=== PATIENT | female | born 1990 | race Caucasian/White ===

== ENCOUNTER 2017-01-13 19:00 | Emergency (ER) | payer MEDICAID, OTHER ==
[2017-01-13 19:00] VITALS: BMI 33.0
[2017-01-13 19:28] VITALS: TEMP 98.2; O2SAT 97
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
[2017-01-13 19:57] LABS: RBC URINE 2 /hpf (0-3); URINE BACTERIA RARE (<OCC); URINE BILIRUBIN NEGATIVE (NEGATIVE); URINE COLOR Yellow (YELLOW); URINE GLUCOSE (UA) NORMAL (Normal); URINE KETONE NEGATIVE (NEGATIVE); URINE PROTEIN NEGATIVE (NEGATIVE); URINE UROBILINOGEN NORMAL mg/dL (0.2-1.0); WBC URINE 2 /hpf (0-5)
[2017-01-13] MEDS ORDERED: Sodium Chloride 0.9% 1,000 ML IV ONE (19:59)
[2017-01-13 20:08] LABS: URINE BLOOD NEGATIVE (NEGATIVE); URINE LEUKOCYTE ESTERASE NEGATIVE Leu/uL (Negative)
[2017-01-13 20:16] LABS: BASO % 0.3 % (0.0-2.0); EOS # 0.1 K/uL (0.0-0.7); EOS % 0.5 % (0.0-4.0); HEMATOCRIT 31.3 % (34.0-47.0); LYMPH # 3.1 K/uL (1.0-4.3); LYMPH % 25.9 % (20.0-40.0); MEAN CELL VOLUME 83.6 fL (81.0-99.0); MEAN CORPUSCULAR HEMOGLOBIN 27.6 pg (27.0-31.0); MEAN PLATELET VOLUME 7.5 fL (7.2-11.7); MONO # 0.6 K/uL (0.0-0.8); MONO % 4.7 % (0.0-10.0); RED CELL DISTRIBUTION WIDTH 14.1 % (11.5-14.5); WHITE BLOOD COUNT 12.1 K/uL (4.8-10.8)
[2017-01-13 20:26] LABS: POTASSIUM 5.2 mmol/L (3.6-5.2)
[2017-01-13 20:28] LABS: BILIRUBIN,TOTAL 0.4 mg/dL (0.2-1.3)
[2017-01-13 20:29] LABS: ALB/GLOB RATIO 1.1 (1.0-2.1); CALCIUM 8.9 mg/dl (8.6-10.4); TOTAL PROTEIN 7.9 g/dL (6.3-8.3)
--- NOTE | 2017-01-13 21:53 | CT ---
EXAM: CT Abdomen and Pelvis Without Intravenous Contrast CLINICAL HISTORY: 26 years old, female; Pain; Abdominal pain; Flank; Left lower quadrant (llq); Additional info: Left flank pain TECHNIQUE: Axial computed tomography images of the abdomen and pelvis without intravenous contrast. This CT exam was performed using one or more of the following dose reduction techniques: automated exposure control, adjustment of the mA and/or kV according to patient size, and/or use of iterative reconstruction technique. Coronal and sagittal reformatted images were created and reviewed. EXAM DATE/TIME: Exam ordered 01/13/2017 8:59 PM COMPARISON: US - ABDOMEN COMPLETE 10/10/2015 1:25:17 PM FINDINGS: Lower thorax: No acute findings. ABDOMEN: Liver: Unremarkable. Gallbladder and bile ducts: Surgical clips are noted in the gallbladder fossa. The gallbladder is absent. No ductal dilation. Pancreas: Unremarkable. No ductal dilation. Spleen: Unremarkable. No splenomegaly. Adrenals: Unremarkable. No mass. Kidneys and ureters: The [place] kidneys are atrophic. A nonobstructing calcification measuring 4 mm is noted in the midportion of the right kidney. A 3 mm nonobstructing calcification is noted the midportion of the left kidney. There is a transplanted kidney seen in the right lower quadrant. There is no hydronephrosis noted. Stomach and bowel: Unremarkable. No obstruction. No mucosal thickening. Appendix: No findings to suggest acute appendicitis. PELVIS: Bladder: Unremarkable. No stones. Reproductive: There is a complex cystic mass noted in the left adnexa measuring 6.6 x 6.7 cm. x 6.9 cm. ABDOMEN and PELVIS: Intraperitoneal space: A small amount of free fluid is seen in the posterior cul-de-sac. No free air. Bones/joints: An area of sclerosis is noted in the superior pubic ramus on the left. No acute fracture. No dislocation. Soft tissues: Unremarkable. Vasculature: Unremarkable. No abdominal aortic aneurysm. Lymph nodes: Unremarkable. No enlarged lymph nodes. IMPRESSION: 1. 6.9 cm complex mass noted in the left adnexa. This can be within the range of normal for menstruating female. The ovaries are better delineated with ultrasound 2. Atrophic [place] kidneys with nonobstructing renal calculi bilaterally 3. Small sclerotic lesions noted within the left superior pubic ramus. This could represent a bone island. Clinical correlation suggested.
[2017-01-13 23:11] VITALS: BP 134/87; PULSE 84; RESP 16
== END 2017-01-13 23:14 | disposition home or self-care (01) ==
LOC: C.ER 19:00
DX: R10.9 Unspecified abdominal pain (principal)
CPT/HCPCS: 74176; 80053; 81001; 83690; 84703; 85025; 85610; 85730; 87040; 96360; 99284; J7040

== ENCOUNTER 2017-02-02 13:11 | Emergency (ER) | payer OTHER, MEDICAID ==
[2017-02-02 13:19] VITALS: BMI 31.7
[2017-02-02 14:39] LABS: HCG,QUALITATIVE URINE NEGATIVE (NEGATIVE)
[2017-02-02 14:48] LABS: SQUAMOUS EPITHIAL 2 /hpf (0-5); URINE BILIRUBIN NEGATIVE (NEGATIVE); URINE BLOOD NEGATIVE (NEGATIVE); URINE CLARITY Clear (Clear); URINE COLOR Yellow (YELLOW); URINE GLUCOSE (UA) NORMAL (Normal); URINE LEUKOCYTE ESTERASE NEG Leu/uL (Negative); URINE NITRATE NEGATIVE (NEGATIVE); URINE PROTEIN 1+ mg/dL (NEGATIVE); URINE UROBILINOGEN NORMAL mg/dL (0.2-1.0)
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
[2017-02-02 15:16] LABS: BASO % 0.3 % (0.0-2.0); EOS % 0.3 % (0.0-4.0); HEMOGLOBIN 9.8 g/dL (11.0-16.0); LYMPH # 1.9 K/uL (1.0-4.3); LYMPH % 14.5 % (20.0-40.0); MEAN CELL VOLUME 83.3 fL (81.0-99.0); MEAN CORPUSCULAR HGB CONC 32.4 g/dL (33.0-37.0); MEAN PLATELET VOLUME 7.6 fL (7.2-11.7); MONO # 0.3 K/uL (0.0-0.8); MONO % 2.6 % (0.0-10.0); NEUT # 10.6 K/uL (1.8-7.0); NEUT % 82.3 % (50.0-75.0); RBC 3.62 Mil/uL (3.80-5.20); RED CELL DISTRIBUTION WIDTH 14.1 % (11.5-14.5); WHITE BLOOD COUNT 12.9 K/uL (4.8-10.8)
[2017-02-02] MEDS ORDERED: Oxycodone/Acetaminophen 5/325 mg Tab PO STA (15:18)
[2017-02-02] MEDS ORDERED: Oxycodone/Acetaminophen 5/325 mg Tab ONE (15:20)
[2017-02-02 15:23] LABS: ALBUMIN 4.1 g/dL (3.5-5.0)
[2017-02-02 15:26] LABS: ALB/GLOB RATIO 1.1 (1.0-2.1); CALCIUM 9.2 mg/dl (8.6-10.4)
[2017-02-02 15:32] VITALS: RESP 18
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
[2017-02-02 18:15] VITALS: BP 116/77; PULSE 72; TEMP 97.5
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
[2017-02-02 18:39] VITALS: O2SAT 98
== END 2017-02-02 18:57 | disposition home or self-care (01) ==
LOC: C.ER 13:11
DX: S16.1XXA Strain of muscle, fascia and tendon at neck level, initial encounter (principal); S40.011A Contusion of right shoulder, initial encounter; S20.02XA Contusion of left breast, initial encounter; V89.2XXA Person injured in unspecified motor-vehicle accident, traffic, initial encounter

== ENCOUNTER 2017-06-19 14:03 | Emergency (ER) | payer MEDICAID, OTHER ==
[2017-06-19 14:11] VITALS: BMI 31.1
[2017-06-19] MEDS ORDERED: Sodium Chloride 0.9% 1,000 ML IV ONE (15:45)
[2017-06-19 15:56] LABS: RBC URINE 41 /hpf (0-3); URINE BACTERIA RARE (<OCC); URINE BILIRUBIN NEGATIVE (NEGATIVE); URINE BLOOD 3+ (NEGATIVE); URINE COLOR Yellow (YELLOW); URINE GLUCOSE (UA) NORMAL (Normal); URINE KETONE NEGATIVE (NEGATIVE); URINE LEUKOCYTE ESTERASE 1+ Leu/uL (Negative); URINE PROTEIN 1+ mg/dL (NEGATIVE); URINE UROBILINOGEN NORMAL mg/dL (0.2-1.0); WBC URINE 71 /hpf (0-5)
[2017-06-19 16:11] LABS: BASO # 0.1 K/uL (0.0-0.2); BASO % 0.5 % (0.0-2.0); EOS # 0.2 K/uL (0.0-0.7); EOS % 1.7 % (0.0-4.0); HEMATOCRIT 32.2 % (34.0-47.0); LYMPH # 4.6 K/uL (1.0-4.3); LYMPH % 37.2 % (20.0-40.0); MEAN CELL VOLUME 83.1 fL (81.0-99.0); MEAN CORPUSCULAR HEMOGLOBIN 26.9 pg (27.0-31.0); MEAN CORPUSCULAR HGB CONC 32.4 g/dL (33.0-37.0); MEAN PLATELET VOLUME 7.5 fL (7.2-11.7); MONO # 0.6 K/uL (0.0-0.8); MONO % 4.9 % (0.0-10.0); RED CELL DISTRIBUTION WIDTH 14.3 % (11.5-14.5); WHITE BLOOD COUNT 12.3 K/uL (4.8-10.8)
[2017-06-19] MEDS ORDERED: Sodium Chloride 0.9% 1,000 ML ONE (16:17)
[2017-06-19 16:25] LABS: ALB/GLOB RATIO 1.1 (1.0-2.1); ALCOHOL SERUM < 10 mg/dl (0-10); ALKALINE PHOSPHATASE 112 U/L (38-126); ALT/SGPT 28 U/L (9-52); AST/SGOT 15 U/L (14-36); BILIRUBIN,TOTAL 0.6 mg/dL (0.2-1.3); BLOOD UREA NITROGEN 33 mg/dL (7-17); CALCIUM 8.5 mg/dl (8.6-10.4); CARBON DIOXIDE 19 mmol/L (22-30); CHLORIDE 106 mmol/L (98-107); GFR AFRICAN-AMERICAN 36; GLUCOSE,RANDOM 99 mg/dL (65-105); POTASSIUM 4.6 mmol/L (3.6-5.2); SODIUM 137 mmol/L (132-148); TOTAL PROTEIN 8.1 g/dL (6.3-8.3)
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
[2017-06-19 16:50] VITALS: BP 143/87; PULSE 81; RESP 16; TEMP 98
[2017-06-19 17:11] VITALS: O2SAT 99
== END 2017-06-19 17:03 | disposition home or self-care (01) ==
LOC: C.ER 14:03
DX: N39.0 Urinary tract infection, site not specified (principal); R10.814 Left lower quadrant abdominal tenderness
CPT/HCPCS: 80053; 80320; 80324; 80345; 80346; 80349; 80353; 80358; 80361; 81001; 83690; 83992; 84703; 85025; 96361; 96374; 99284; J1885; J7040

== ENCOUNTER 2017-11-10 18:30 | Emergency (ER) | payer MEDICAID ==
[2017-11-10 18:30] VITALS: BMI 31.1
[2017-11-10 18:40] VITALS: RESP 18
--- NOTE | 2017-11-10 20:07 | C.PDOC ---
History Of Present Illness 27 year old female presents to the ED c/o evaluation of diffuse itchy rash that gradually developed yesterday after she took cough medicine for the first time yesterday. Patient reports that after taking the medication she noticed the rash to her bilateral upper extremities. Otherwise, Patient denies fever, chills , headache, dizziness, drooling, throat swelling or tightness, CP, SOB, wheezing , nausea, vomit, denies any other active complaints. Ambulate to Ed for evaluation, not in any apparent distress. Time Seen by Provider: 11/10/17 19:14 Chief Complaint (Nursing): Allergic Reaction History Per: Patient History/Exam Limitations: no limitations Onset/Duration Of Symptoms: Days Current Symptoms Are (Timing): Still Present Possible Cause: Medication Associated Symptoms: Skin Rash. denies: Swelling, Dizziness Severity: None Recent travel outside of the [place]: No Additional History Per: Patient Past Medical History Reviewed: Historical Data, Nursing Documentation, Vital Signs Vital Signs: Last Vital Signs Temp 98.5 F 11/10/17 21:12 Pulse 96 H 11/10/17 21:12 Resp 18 11/10/17 21:12 BP 122/87 11/10/17 21:12 Pulse Ox 99 11/10/17 21:12 - Medical History PMH: Anxiety, Bipolar Disorder, Depression, HTN, End Stage Renal Disease, Chronic Kidney Disease (SEE COMMENT), Seizures Denies: HIV, Sexually Transmitted Disease Surgical History: Cholecystectomy - [facility] Procedures INCIS W REM OF FORIEGN BODY OR DEV FROM SKIN & SUBCUT TISSUE (08/18/14) LAPAROSCOP LYSIS-ADHES OVA,FALLOP TUBE (05/19/14) LOCAL DESTR OVA LES NEC (05/19/14) OTHER SKIN & SUBQ I D (04/17/14) Family History: States: Unknown Family Hx - Social History Hx Tobacco Use: No Hx Alcohol Use: No Hx Substance Use: No - Immunization History Hx Tetanus Toxoid Vaccination: Yes Hx Influenza Vaccination: No Hx Pneumococcal Vaccination: No Review Of Systems Constitutional: Negative for: Fever, Chills ENT: Negative for: Mouth Swelling, Throat Swelling Cardiovascular: Negative for: Chest Pain Respiratory: Negative for: Cough, Shortness of Breath Gastrointestinal: Negative for: Nausea, Vomiting Skin: Positive for: Rash Physical Exam - Physical Exam Appears: Well, Non-toxic, No Acute Distress Skin: Normal Color, Warm, Dry, Rash (scattered urticaria to anterior chest, abdomen, B/L UEs. No edema, no cellulitis.) Head: Normacephalic Eye(s): bilateral: PERRL Ear(s): Bilateral: Normal Nose: No Discharge Oral Mucosa: Moist, No Drooling Tongue: Normal Appearing, No Swelling Lips: Normal Appearing, No Swelling Throat: No Erythema, No Drooling, Other (uvula m idline, no edema.) Neck: Trachea Midline, Supple Cardiovascular: Rhythm Regular, No Murmur, No JVD Respiratory: Normal Breath Sounds Gastrointestinal/Abdominal: Soft, No Tenderness, No Distention, No Guarding Back: No CVA Tenderness Extremity: Normal ROM, No Deformity, No Swelling Neurological/Psych: Oriented x3, Normal Speech ED Course And Treatment O2 Sat by Pulse Oximetry: 100 (On RA) Pulse Ox Interpretation: Normal Progress Note: On re-evaluation, pt is afebrile, hemodynamicaly stable. Non- toxic. Tolerate Po well in ED. PulseOx 100% RA. ENT: no acute findingts, uvula midline, no edema. Neck: Supple. Lungs: CTA B/L, BS equal B/L. SKin: exam c/w allergic urticaria, no cellulitis. Pt advised on course of ds. Advised to stop medication immediately that cause allergy. ref. to f/u with PMD , shop fitter in 1-2 days for re-eavl. return to ED if anyw orsening or new changes. Disposition Counseled Patient/Family Regarding: Diagnosis, Need For Followup, Rx Given - Disposition Referrals: Quin Bates [Staff Provider] - Disposition: HOME/ ROUTINE Disposition Time: 19:55 Condition: STABLE Additional Instructions: Stop immediately and avoid medication cause allergy in future Take given medication as prescribed Follow up with PMD, Machine Attendant in 2-3 days for re-evaluation. return to ED if any worsening or new changes. 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 - Scribe Statement The provider has reviewed the documentation as recorded by the Scribe Raúl Landry All medical record entries made by the Scribe were at my direction and personally dictated by me. I have reviewed the chart and agree that the record accurately reflects my personal performance of the history, physical exam, medical decision making, and the department course for this patient. I have also personally directed, reviewed, and agree with the discharge instructions and disposition.
[2017-11-10 21:15] VITALS: BP 122/87; PULSE 96; TEMP 98.5
[2017-11-11 02:00] VITALS: O2SAT 100
== END 2017-11-10 21:15 | disposition home or self-care (01) ==
LOC: C.ER 18:30
DX: L50.0 Allergic urticaria (principal)

== ENCOUNTER 2018-04-07 11:20 | Emergency (ER) | payer MEDICAID ==
[2018-04-07 11:20] VITALS: BMI 31.1
[2018-04-07] MEDS ORDERED: Sodium Chloride 0.9% 1,000 ML IV ONE (11:54)
[2018-04-07 12:35] LABS: HCG,QUALITATIVE URINE NEGATIVE (NEGATIVE)
[2018-04-07 12:40] LABS: SQUAMOUS EPITHIAL 20 /hpf (0-5); URINE BACTERIA RARE (<OCC); URINE BILIRUBIN NEGATIVE (NEGATIVE); URINE BLOOD 1+ (NEGATIVE); URINE CLARITY Hazy (Clear); URINE COLOR Yellow (YELLOW); URINE GLUCOSE (UA) NORMAL (Normal); URINE LEUKOCYTE ESTERASE 1+ Leu/uL (Negative); URINE PROTEIN 1+ mg/dL (NEGATIVE); URINE UROBILINOGEN NORMAL mg/dL (0.2-1.0)
[2018-04-07 13:01] LABS: BASO # 0.1 K/uL (0.0-0.2); BASO % 0.4 % (0.0-2.0); EOS # 0.3 K/uL (0.0-0.7); EOS % 2.2 % (0.0-4.0); HEMOGLOBIN 10.9 g/dL (11.0-16.0); LYMPH # 3.9 K/uL (1.0-4.3); LYMPH % 28.1 % (20.0-40.0); MEAN CELL VOLUME 82.9 fL (81.0-99.0); MEAN CORPUSCULAR HEMOGLOBIN 28.6 pg (27.0-31.0); MEAN CORPUSCULAR HGB CONC 34.5 g/dL (33.0-37.0); MEAN PLATELET VOLUME 7.5 fL (7.2-11.7); MONO # 0.7 K/uL (0.0-0.8); MONO % 4.9 % (0.0-10.0); NEUT # 8.9 K/uL (1.8-7.0); NEUT % 64.4 % (50.0-75.0); NRBC % 0.1 % (0.0-2.0); RBC 3.82 Mil/uL (3.80-5.20); WHITE BLOOD COUNT 13.9 K/uL (4.8-10.8)
--- NOTE | 2018-04-07 13:25 | C.PDOC ---
History Of Present Illness 27 y/o female presents to the ER complaining of headache,nausea,vomiting, and diarrhea which have been present for the past 1 week. Patient is also complaining of irregular periods. Denies having dysuria, hematuria, fever, and chills. Patient is S/P kidney transplant Time Seen by Provider: 04/07/18 11:40 Chief Complaint (Nursing): Headache History Per: Patient History/Exam Limitations: no limitations Onset/Duration Of Symptoms: Days Current Symptoms Are (Timing): Still Present Severity: Moderate Preceeding Symptoms: None Past Medical History Reviewed: Historical Data, Nursing Documentation, Vital Signs Vital Signs: Last Vital Signs Temp 98.9 F 04/07/18 15:15 Pulse 93 H 04/07/18 15:15 Resp 16 04/07/18 15:15 BP 128/92 H 04/07/18 15:15 Pulse Ox 100 04/07/18 15:19 - Medical History PMH: Anxiety, Bipolar Disorder, Depression, HTN, End Stage Renal Disease, Chronic Kidney Disease (SEE COMMENT), Seizures Denies: HIV, Sexually Transmitted Disease Surgical History: Cholecystectomy Other Surgeries: Kidney transplant - [facility] Procedures INCIS W REM OF FORIEGN BODY OR DEV FROM SKIN & SUBCUT TISSUE (08/18/14) LAPAROSCOP LYSIS-ADHES OVA,FALLOP TUBE (05/19/14) LOCAL DESTR OVA LES NEC (05/19/14) OTHER SKIN & SUBQ I D (04/17/14) Family History: States: No Known Family Hx - Social History Hx Tobacco Use: No Hx Alcohol Use: No Hx Substance Use: No - Immunization History Hx Tetanus Toxoid Vaccination: Yes Hx Influenza Vaccination: No Hx Pneumococcal Vaccination: No Review Of Systems Except As Marked, All Systems Reviewed And Found Negative. Constitutional: Negative for: Fever, Chills Gastrointestinal: Positive for: Nausea, Vomiting, Diarrhea. Negative for: Abdominal Pain Neurological: Positive for: Headache Physical Exam - Physical Exam Appears: Non-toxic, No Acute Distress Skin: Normal Color, Warm, Dry Head: Atraumatic, Normacephalic Eye(s): bilateral: Normal Inspection Nose: Normal Oral Mucosa: Moist Neck: Supple Chest: Symmetrical Cardiovascular: Rhythm Regular Respiratory: Normal Breath Sounds, No Rales, No Rhonchi, No Wheezing Gastrointestinal/Abdominal: Soft, Tenderness (left sided lower abdominal tenderness), No Guarding, No Rebound Extremity: Normal ROM Neurological/Psych: Oriented x3, Normal Speech Gait: Steady ED Course And Treatment - Laboratory Results Result Diagrams: 04/07/18 12:55 04/07/18 12:55 Lab Interpretation: No Acute Changes Urine POC: Negative O2 Sat by Pulse Oximetry: 100 (RA) Pulse Ox Interpretation: Normal Progress Note: Treated with IVF NSS and reglan. On re-evaluation feeling better , abdomen soft Reassessment Condition: Improved Medical Decision Making Medical Decision Making: Plan: --Labs --UA --IV Fluids --Reglan IV Disposition - Disposition Referrals: [facility] [Outside] [facility] [Outside] Disposition: HOME/ ROUTINE Disposition Time: 15:15 Condition: GOOD Additional Instructions: Follow up with transplant clinic for further evaluation Instructions: Viral Gastroenteritis Forms: [facility] ([place]) - POA Present On Arrival: None - Clinical Impression Clinical Impression: Gastroenteritis - 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 - Scribe Statement The provider has reviewed the documentation as recorded by the Neisha Sparrow Provider Attestation All medical record entries made by the Vicenteibe were at my direction and personally dictated by me. I have reviewed the chart and agree that the record accurately reflects my personal performance of the history, physical exam, medical decision making, and the department course for this patient. I have also personally directed, reviewed, and agree with the discharge instructions and disposition.
[2018-04-07 13:58] LABS: ALB/GLOB RATIO 1.3 (1.0-2.1); ALBUMIN 4.6 g/dL (3.5-5.0); CALCIUM 9.5 mg/dl (8.6-10.4)
[2018-04-07 15:16] VITALS: BP 128/92; PULSE 93; RESP 16; TEMP 98.9
[2018-04-07 15:20] VITALS: O2SAT 100
== END 2018-04-07 15:16 | disposition home or self-care (01) ==
LOC: C.ER 11:20
DX: K52.9 Noninfective gastroenteritis and colitis, unspecified (principal)
CPT/HCPCS: 80053; 81001; 83690; 84703; 85025; 87086; 96361; 96374; 99285; J2765; J7030

== ENCOUNTER 2018-07-30 12:20 | Outpatient (CLI) | payer MEDICAID | END 2018-07-30 12:21 | disposition home or self-care (01) | LOC: C.MRIC 12:20 | DX: G40.909 Epilepsy, unspecified, not intractable, without status epilepticus (principal) ==

== ENCOUNTER 2018-10-22 15:53 | Emergency (ER) | payer MEDICAID ==
[2018-10-22 15:54] VITALS: BMI 31.1
[2018-10-22 16:15] VITALS: PULSE 89; RESP 20; TEMP 98.2
[2018-10-22 16:45] LABS: SQUAMOUS EPITHIAL 3 /hpf (0-5); URINE BILIRUBIN NEGATIVE (NEGATIVE); URINE BLOOD NEGATIVE (NEGATIVE); URINE CLARITY Clear (Clear); URINE COLOR Yellow (YELLOW); URINE GLUCOSE (UA) NORMAL (Normal); URINE LEUKOCYTE ESTERASE NEG Leu/uL (Negative); URINE PROTEIN 2+ mg/dL (NEGATIVE); URINE UROBILINOGEN NORMAL mg/dL (0.2-1.0)
[2018-10-22 16:54] LABS: HCG,QUALITATIVE URINE NEGATIVE (NEGATIVE)
--- NOTE | 2018-10-22 17:03 | C.PDOC ---
History Of Present Illness Patient is a 28 female who presents to the ED c/o dysuria and increased frequency for the past two days. Patient states that she has had previous UTI's in the past and believes she may have one now. She denies any suprapubic pain, fever, chills, nausea, vomiting, or back pain. Time Seen by Provider: 10/22/18 16:09 Chief Complaint (Nursing): Female Genitourinary History Per: Patient History/Exam Limitations: no limitations Onset/Duration Of Symptoms: Days (2) Current Symptoms Are (Timing): Still Present Quality Of Discomfort: Burning Associated Symptoms: Urinary Symptoms. denies: Fever, Chills, Nausea, Vomiting, Back Pain Recent travel outside of the [place]: No Additional History Per: Patient Past Medical History Reviewed: Historical Data, Nursing Documentation, Vital Signs Vital Signs: Last Vital Signs Temp 98.2 F 10/22/18 16:09 Pulse 89 10/22/18 16:09 Resp 20 10/22/18 16:09 BP 150/95 H 10/22/18 16:09 Pulse Ox 99 10/22/18 16:09 - Medical History PMH: Anxiety, Bipolar Disorder, Depression, HTN, End Stage Renal Disease, Chronic Kidney Disease (SEE COMMENT), Seizures Denies: HIV, Sexually Transmitted Disease Surgical History: Cholecystectomy - [facility] Procedures INCIS W REM OF FORIEGN BODY OR DEV FROM SKIN & SUBCUT TISSUE (08/18/14) LAPAROSCOP LYSIS-ADHES OVA,FALLOP TUBE (05/19/14) LOCAL DESTR OVA LES NEC (05/19/14) OTHER SKIN & SUBQ I D (04/17/14) Family History: States: No Known Family Hx - Social History Hx Tobacco Use: No Hx Alcohol Use: No Hx Substance Use: No - Immunization History Hx Tetanus Toxoid Vaccination: Yes Hx Influenza Vaccination: No Hx Pneumococcal Vaccination: No Review Of Systems Constitutional: Negative for: Fever, Chills Gastrointestinal: Negative for: Nausea, Vomiting, Abdominal Pain (suprapubic) Genitourinary: Positive for: Dysuria, Frequency Physical Exam - Physical Exam Appears: Non-toxic, No Acute Distress Skin: Normal Color, Warm, Dry Head: Atraumatic, Normacephalic Neck: Supple Chest: Symmetrical, No Deformity Cardiovascular: Rhythm Regular, No Murmur Respiratory: Normal Breath Sounds, No Rales, No Rhonchi, No Wheezing Gastrointestinal/Abdominal: Soft, No Tenderness Back: No CVA Tenderness Extremity: No Tenderness, No Pedal Edema Extremity: Bilateral: Atraumatic Neurological/Psych: Oriented x3, Normal Speech, Normal Motor, Normal Sensation ED Course And Treatment - Laboratory Results Lab Results: Urine Color Yellow (YELLOW) 10/22/18 16:21 Urine Clarity Clear (Clear) 10/22/18 16:21 Urine pH 6.0 (5.0-8.0) 10/22/18 16:21 Ur Specific [place] 1.012 (1.003-1.030) 10/22/18 16:21 Urine Protein 2+ mg/dL (NEGATIVE) H 10/22/18 16:21 Urine Glucose (UA) Normal mg/dL (Normal) 10/22/18 16:21 Urine Ketones Negative mg/dL (NEGATIVE) 10/22/18 16:21 Urine Blood Negative (NEGATIVE) 10/22/18 16:21 Urine Nitrate Negative (NEGATIVE) 10/22/18 16:21 Urine Bilirubin Negative (NEGATIVE) 10/22/18 16:21 Urine Urobilinogen Normal mg/dL (0.2-1.0) 10/22/18 16:21 Ur Leukocyte Esterase Neg Ignacio/uL (Negative) 10/22/18 16:21 Urine WBC (Auto) 2 /hpf (0-5) 10/22/18 16:21 Urine RBC (Auto) 1 /hpf (0-3) 10/22/18 16:21 Ur Squamous Epith Cells 3 /hpf (0-5) 10/22/18 16:21 Urine HCG, Qual Negative (NEGATIVE) 10/22/18 16:21 Urine HCG, Qual Negative (NEGATIVE) 10/22/18 16:21 O2 Sat by Pulse Oximetry: 99 (on RA) Pulse Ox Interpretation: Normal Medical Decision Making Medical Decision Making: Plan: Urinalysis- negative Pyridium 200mg PO for dysuria patient advised to follow up with pmd if symptoms persist patient verbalized understanding and is in agreement with plan patient is stable for discharge Disposition Counseled Patient/Family Regarding: Studies Performed, Diagnosis, Need For Followup, Rx Given - Disposition Referrals: 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 - Scribe Statement The provider has reviewed the documentation as recorded by the Neisha Crespo All medical record entries made by the Vicenteibifeanyi were at my direction and personally dictated by me. I have reviewed the chart and agree that the record accurately reflects my personal performance of the history, physical exam, medical decision making, and the department course for this patient. I have also personally directed, reviewed, and agree with the discharge instructions and disposition.
[2018-10-22 17:11] VITALS: BP 147/90
[2018-10-22 17:19] VITALS: O2SAT 99
== END 2018-10-22 17:12 | disposition home or self-care (01) ==
LOC: C.ER 15:53
DX: R30.0 Dysuria (principal)